=== PATIENT | female | born 1995 | race African-American/Black ===

== ENCOUNTER 2016-08-13 07:54 | Emergency (ER) | payer MEDICAID ==
[~2016-08-13] VITALS: Ht 154.9 cm; Wt 60.0 kg
[2016-08-13 07:56] VITALS: BP 121/71; PULSE 80; RESP 15; TEMP 98.2; O2SAT 98
[2016-08-13] MEDS ORDERED: IBUP800T23 PO (08:16)
--- NOTE | 2016-08-13 08:16 | PD ---
HPI . dental pain and bleeding this morning Chief Complaint: Oral / Dental Pain or Problem Time Seen by Provider: 08:09 Travel History International Travel<30 days: No Contact w/Intl Traveler<30days: No Traveled to known affect area: No History of Present Illness HPI 20-year-old female from [place] who was in the area for [place] presents to the emergency room via [facility] with complaints of dental pain. Patient states she was at home this morning when all of a sudden she noticed that she had some bleeding from her gums on her lower left jaw. She thought she had a dental abscess therefore called [facility] to transport her to the emergency room as she does not have a car or any form of transportation. Patient admits to pain in her gums and teeth for quite some time. She is from [place] and has some issues with finding providers locally. She denies any fever, chills, or difficulty eating. [facility] Social History Alcohol Use: No Tobacco Use: Yes Allergies-Medications (Allergen,Severity, Reaction): Coded Allergies: No Known Allergies (Unverified , 08/13/16) Reported Meds & Prescriptions Reported Meds & Active Scripts Active Ibuprofen 800 Mg Tab 800 Mg PO TID Review of Systems General / Constitutional: No: Fever Eyes: No: Visual changes HENT: Positive: Dental Difficulties, No: Headaches Cardiovascular: No: Chest Pain or Discomfort Respiratory: No: Shortness of Breath Gastrointestinal: No: Abdominal Pain Genitourinary: No: Dysuria Musculoskeletal: No: Pain Skin: No Rash Neurologic: No: Weakness Psychiatric: No: Depression Endocrine: No: Polydipsia Hematologic/Lymphatic: No: Easy Bruising Physical Exam Narrative GENERAL: AAO x 3, no acute distress, Well-nourished, well-developed patient. comfortable in bed SKIN: Warm and dry. No visible rashes or bruising. HEAD: Normocephalic and atraumatic. EYES: No scleral icterus. No injection or drainage. ENT: No nasal drainage noted. Mucous membranes pink. Airway patent. 32, 17, 16, 1 some are impacted and partially impacted NECK: Supple, trachea midline. No JVD. CARDIOVASCULAR: Regular rate and rhythm without murmurs, gallops, or rubs. RESPIRATORY: Breath sounds equal bilaterally. No accessory muscle use. No rhonchi or rales. GASTROINTESTINAL: Abdomen soft, non-tender, nondistended. EXTREMITIES: No cyanosis or edema. BACK: Nontender without obvious deformity. No CVA tenderness. PSYCH: AAO x 3, normal affect. Data Data Last Documented VS Vital Signs Date Time Temp Pulse Resp B/P Pulse Ox O2 Delivery O2 Flow Rate FiO2 08/13/16 07:56 98.2 80 15 121/71 98 MDM Medical Decision Making Medical Screen Exam Complete: Yes Emergency Medical Condition: Yes Medical Record Reviewed: Yes (no records on file) Differential Diagnosis dental pain, impacted wisdom tooth, unlikely dental abscess Narrative Course 20-year-old female from [place] who was in the [place] presents to the emergency room via [facility] with complaints of dental pain. Patient states she was at home this morning when all of a sudden she noticed that she had some bleeding from her gums on her lower left jaw. She thought she had a dental abscess therefore called [facility] to transport her to the emergency room as she does not have a car or any form of transportation. Patient admits to pain in her gums and teeth for quite some time. She is from [place] and has some issues with finding providers locally. She denies any fever, chills, or difficulty eating. Patient seen and examined. She is in no signs of distress. I explained to her that this is not a medical emergency. I advised patient to go to the dentist to have her teeth assessed for extraction. I am quite her with ibuprofen for pain relief. She will use Tylenol intermittently as needed. Diagnosis Primary Impression: Pain, dental Patient Instructions: Acute Dental Trauma (ED), General Instructions Departure Forms: Tests/Procedures, Work Release Enter return to work date: Aug 13, 2016 Additional Instructions: As we discussed this is not an emergency tooth issue. Your wisdom teeth are slightly impacted and will need to be removed. Please follow up with a dentist. Contact your insurance company for details as to where you can be seen by a local dentist. Take medications as needed for pain. Use Tylenol as needed for additional pain control in between the ibuprofen. Scripts Ibuprofen 800 Mg Caj009 Mg PO TID #30 TAB Ref 0 Prov:Janel Canales 08/13/16 Disposition: 01 DISCHARGE HOME Condition: Stable Janel Canales Aug 13, 2016 08:16 Janel Canales Aug 13, 2016 08:16
== END 2016-08-13 08:28 | disposition home or self-care (01) ==
LOC: NEPB 07:54
DX: K08.89 Other specified disorders of teeth and supporting structures (principal); Z72.0 Tobacco use
CPT/HCPCS: 99283